=== PATIENT | male | born 1965 | race Caucasian/White ===

== ENCOUNTER 2017-06-06 17:27 | Emergency (ER) | payer OTHER ==
--- NOTE | 2017-06-06 17:40 | DR.GENAD ---
HPI - PCP Primary Care Physician: NONE - HPI Comment HPI Comment: MANIC DEPRESSIVE PYCHOSIS AND CATATONIC SCHIZOPHRENIA WHO IS REFUSE MEDS FOR FEW DAYS. NO DYSURIA. PATIENT HAVE REFUSE TO EAT OR DRINK FOR FEW DAYS. - Complaint/Symptoms Chief Complaint Doctors Comments: PATIENT WITH DEPRESSION. REFUSSING MEDICATIONS. Chief Complaint:: "HIS FEET ARE SWOLLEN AND PURPLE. HE HAS BEEN DEPRESSED SINCE 2008 BUT OVER THE PAST COUPLE OF DAYS HE HAS BEEN NOT EATING AND JUST STARES OFF. HE WENT TO [facility] IN 2008." Self Treatment fo Chief Complaint: NONE. PT REFUSES TO TAKE HIS MEDICATION - Nurses notes reviewed Nurses Notes Review: Yes - Source History Provided: Parent - Mode of Arrival Mode of Arrival: Wheelchair - Timing Onset of Chief Complaint: 06/06/17 Came on: Suddenly - Duration Duration: Constant Duration: Days - Severity Severity: Moderate PMH - PMH Past Medical History: Yes Past Medical History: Depression Past Medical History Comment: LUPUS, OCD Past Surgical History: Yes Past Surgical History Comment: KIDNEY SURGERY - Family History History of Family Medical Conditions: No - Social History Does patient currently use any type of tobacco product: No Have you used tobacco products in the last 12 months: No Type of Tobacco Use: None Does any household member use tobacco: No Alcohol Use: None Do you use any recreational Drugs:: No Lives With: Alone Lives Where: Home - infectious screening In the last 2 months have you had wt loss of >10#?: NO Have you had fever, night sweats or hemotysis?: No Have you traveled outside the country in the last 6 months?: No Isolation: Standard ROS - Review of Systems Constitutional: Weakness, Fatigue, Loss of Appetite. negative: Chills, Fever Eyes: Discharge. negative: Eye Pain ENTM: negative: Ear Pain, Nose Discharge, Nose Congestion, Throat Pain Respiratoy: Non-Productive Cough, Short of Breath. negative: Wheezing, Hemoptysis Cardiovascular: Edema. negative: Chest Pain Gastrointestinal/Abdominal: negative: Abdominal Pain, Diarrhea, Nausea, Vomiting Genitourinary: negative: Dysuria, Frequency, Hematuria Neurological: Headache, Paresthesia (FEET), Weakness, Dizziness Musculoskeletal: Joint Pain, Joint Swelling, Muscle Pain Integumentary: Change in Color (FEET SWOLLEN AND ERYTHEMATIOUS.) Hematologic/Lymphatic: Easy Bruising Endocrine: No Symptoms Reported Psychiatric: Depression, Other (PARANOIA) All Other Systems: Reviewed and Negative PE - Vital Signs Vitals: Temperature 98.1 F Pulse Rate [Left Brachial] 62 Pulse Rate 70 Respiratory Rate 18 Blood Pressure [Left Arm] 105/56 Blood Pressure 116/61 O2 Sat by Pulse Oximetry 99 - General Limitations: Other (CATATONIC STATE) General Appearance: Alert, Other (FIX GAZE) - Head Head Exam: Normal Inspection - Eyes Eye exam: negative: Scleral Icterus, Conjunctival Injection - ENT ENT Exam: Normal Oropharynx, Normal External Ear Exam, Mucous Membranes Moist, TM's Normal Bilaterally External Ear Exam: Normal External Inspection TM/Canal Exam: Bilateral Normal Nose Exam: Normal Nose Exam Mouth Exam: Normal Inspection Throat Exam: Normal Inspection - Neck Neck Exam: Trachea Midline - Chest Chest Inspection: Symmetric Chest Wall Rise - Respiratory Respiratory Exam: Normal Lung Sounds Bilat Respiratory Exam: Bilateral Clear to Auscultation - Cardiovascular Cardiovascular Exam: Regular Rate, Normal Rhythm, Normal Heart Sounds - Abdominal Exam Abdominal Exam: Normal Bowel Sounds, Soft. negative: Tenderness - Extremities Extremities Exam: Tenderness (ERYTHEMA FEET AND ANKLE), Edema - Back Back Exam: Normal Inspection - Neurologic Neurological Exam: Alert, Other (FIX GAZE.) - Psychiatric Psychiatric Exam: Flat Affect - Skin Skin Exam: Erythema MDM - Additional Information Additional Information Obtained From: Family - Differential Diagnosis Differential Diagnosis: CATATONIC SCHIZOPHENIA, MANIC DEPRESSIVE PYCHOSIS, SLE Course - Treatment Treatment: SEE ORDERS. - Consultation Consultation Comments: ACCEPTED FOR TRANSFER TO [facility] IN [place] BY DR. BALDERAS. - Education/Counseling Education/Counseling: Patient, Family, Education Educated On: Diagnosis ROR - Labs Reviewed Laboratory Results Reviewed?: Yes Result Diagrams: 06/06/17 18:54 06/06/17 18:54 Laboratory: WBC 4.7 X10^3/uL (3.6-10.0) 06/06/17 18:54 RBC 4.47 X10^6/uL (4.7-6.0) L 06/06/17 18:54 Hgb 13.5 g/dL (13.5-18.0) 18 18:54 Hct 39.4 % (42.0-54.0) L 06/06/17 18:54 MCV 88.1 fL (80.0-100.0) 06/06/17 18:54 MCH 30.1 pg (27.0-34.0) 06/06/17 18:54 MCHC 34.1 g/dL (33.0-35.0) 06/06/17 18:54 RDW 13.7 % (11.6-16.5) 06/06/17 18:54 Plt Count 196 X10^3/uL (150.0-450.0) 06/06/17 18:54 MPV 7.9 fL (7.4-11.0) 06/06/17 18:54 Neut % (Auto) 63.8 % (42.0-75.0) 06/06/17 18:54 Lymph % (Auto) 23.2 % (21.0-51.0) 06/06/17 18:54 Evans % (Auto) 11.7 % (0.0-13.0) 06/06/17 18:54 Eos % (Auto) 0.4 % (0.9-2.9) L 06/06/17 18:54 Baso % (Auto) 0.9 % (0.2-1.0) 06/06/17 18:54 Neut # (Auto) 3.0 x10^3/uL (2.2-4.8) 06/06/17 18:54 Lymph # (Auto) 1.1 X10^3/uL (1.3-2.9) L 06/06/17 18:54 Evans # (Auto) 0.5 x10^3/uL (0.3-0.8) 06/06/17 18:54 Eos # (Auto) 0.0 x10^3/uL (0.0-0.2) 06/06/17 18:54 Baso # (Auto) 0.0 X10^3/uL (0.0-0.1) 06/06/17 18:54 Absolute Nucleated RBC 0.0 /100WBC 06/06/17 18:54 Sodium 141 mmol/L (136-145) 06/06/17 18:54 Corrected Sodium TNP 06/06/17 18:54 Potassium 4.2 mmol/L (3.5-5.1) 06/06/17 18:54 Chloride 103 mmol/L (98-107) 06/06/17 18:54 Carbon Dioxide 29.5 mmol/L (21-32) 06/06/17 18:54 BUN 28 mg/dL (7-18) H 06/06/17 18:54 Creatinine 1.13 mg/dL (0.70-1.30) 06/06/17 18:54 Est GFR (MDRD) Af Amer > 60 (>60) 06/06/17 18:54 Est GFR (MDRD) Non-Af > 60 (>60) 06/06/17 18:54 Glucose 96 mg/dL (65-99) 06/06/17 18:54 Calcium 8.7 mg/dL (8.5-10.1) 06/06/17 18:54 Corrected Calcium TNP 06/06/17 18:54 Total Bilirubin 0.30 mg/dL (0.2-1.0) 06/06/17 18:54 AST 28 Units/L (15-37) 06/06/17 18:54 ALT 24 Units/L (12-78) 06/06/17 18:54 Alkaline Phosphatase 73 Units/L (46-116) 06/06/17 18:54 Total Protein 8.0 g/dL (6.4-8.2) 06/06/17 18:54 Albumin 3.8 g/dL (3.4-5.0) 06/06/17 18:54 Globulin 4.2 g/dL (2.5-4.5) 06/06/17 18:54 Albumin/Globulin Ratio 0.9 Ratio (1.1-2.1) L 06/06/17 18:54 Specimen Type Random urine 06/06/17 19:40 Urine Color Yellow (YELLOW) 06/06/17 19:40 Urine Appearance Slightly hazy (CLEAR) 06/06/17 19:40 Urine pH 5.0 (5.0 - 8.0) 06/06/17 19:40 Ur Specific [place] 1.025 (1.000-1.030) 06/06/17 19:40 Urine Protein 1+ (NEGATIVE) 06/06/17 19:40 Urine Glucose (UA) Negative (NEGATIVE) 06/06/17 19:40 Urine Ketones 1+ (NEGATIVE) 06/06/17 19:40 Urine Occult Blood 2+ (NEGATIVE) 06/06/17 19:40 Urine Nitrite Negative (NEGATIVE) 06/06/17 19:40 Urine Bilirubin Negative (NEGATIVE) 06/06/17 19:40 Urine Urobilinogen Normal (NORMAL) 06/06/17 19:40 Ur Leukocyte Esterase Negative (NEGATIVE) 06/06/17 19:40 Urine RBC 0-3 /HPF (NONE SEEN) 06/06/17 19:40 Urine WBC 0-3 /HPF (NONE SEEN) 06/06/17 19:40 Ur Squamous Epith Cells Few /HPF (NEGATIVE) 06/06/17 19:40 Urine Bacteria Trace /HPF (NEGATIVE) 06/06/17 19:40 Urine Mucus Moderate /HPF (NEGATIVE) 06/06/17 19:40 Ur Culture Indicated? No/not indicated 06/06/17 19:40 Salicylates < 2.8 mg/dL (2.8-20) L 06/06/17 18:54 Urine Opiates Screen Negative (NEG=<300) 06/06/17 19:44 Urine Methadone Screen Negative (NEG=<300) 06/06/17 19:44 Acetaminophen 0.0 ug/mL (10-30) L 06/06/17 18:54 Ur Barbiturates Screen Negative (NEG=<200) 06/06/17 19:44 Ur Phencyclidine Scrn Negative (NEG=<25) 06/06/17 19:44 Ur Amphetamines Screen Negative (NEG=<1000) 06/06/17 19:44 U Benzodiazepines Scrn Negative (NEG=<200) 06/06/17 19:44 Urine Cocaine Screen Negative (NEG=<300) 06/06/17 19:44 U Marijuana (THC) Screen Negative (NEG=<50) 06/06/17 19:44 Ethyl Alcohol mg/dL < 3 mg/dL (0-19.9) 06/06/17 18:54 - XRAY XRAY Interpreted by: Radiologist XRAY Findings: REPORT DISCUSS WITH PATIENT. - EKG Rhythm: NSR (EKG NOTED) - Diagnosis Discharge Problem: Catatonic schizophrenia, Manic depressive psychosis, SLE (systemic lupus erythematosus) - Discharge Plan Disposition: 65 XFER TO PSYCH HOSP/UNIT Condition: Stable - Follow ups/Referrals Follow ups/Referrals: NFD,None [Primary Care Provider] - 3 days - Instructions
[2017-06-06 17:48] VITALS: BMI 19.5
[2017-06-06 19:08] LABS: BASOPHILS % (AUTO) 0.9 % (0.2-1.0); EOSINOPHILS % (AUTO) 0.4 % (0.9-2.9); HEMATOCRIT 39.4 % (42.0-54.0); HEMOGLOBIN 13.5 g/dL (13.5-18.0); LYMPHOCYTES # (AUTO) 1.1 X10^3/uL (1.3-2.9); LYMPHOCYTES % (AUTO) 23.2 % (21.0-51.0); MEAN CORPUSCULAR HEMOGLOBIN 30.1 pg (27.0-34.0); MEAN CORPUSCULAR HGB CONC 34.1 g/dL (33.0-35.0); MEAN CORPUSCULAR VOLUME 88.1 fL (80.0-100.0); MEAN PLATELET VOLUME 7.9 fL (7.4-11.0); MONOCYTES # (AUTO) 0.5 x10^3/uL (0.3-0.8); MONOCYTES % (AUTO) 11.7 % (0.0-13.0); NEUTROPHILS % (AUTO) 63.8 % (42.0-75.0); PLATELET COUNT 196 X10^3/uL (150.0-450.0); RED BLOOD COUNT 4.47 X10^6/uL (4.7-6.0); RED CELL DISTRIBUTION WIDTH 13.7 % (11.6-16.5); WHITE BLOOD COUNT 4.7 X10^3/uL (3.6-10.0)
[2017-06-06 19:17] LABS: ALANINE AMINOTRANSFERASE 24 Units/L (12-78); ALBUMIN 3.8 g/dL (3.4-5.0); ALKALINE PHOSPHATASE 73 Units/L (46-116); ASPARTATE AMINO TRANSFERASE 28 Units/L (15-37); BLOOD UREA NITROGEN 28 mg/dL (7-18); CALCIUM 8.7 mg/dL (8.5-10.1); CARBON DIOXIDE 29.5 mmol/L (21-32); CHLORIDE 103 mmol/L (98-107); CREATININE 1.13 mg/dL (0.70-1.30); SODIUM 141 mmol/L (136-145); eGFR BLACK RACES > 60 (>60); eGFR NON BLACK RACES > 60 (>60)
[2017-06-06 19:47] LABS: BILIRUBIN,URINE NEGATIVE (NEGATIVE); BLOOD/HEMOGLOBIN,URINE 2+ (NEGATIVE); GLUCOSE, URINE NEGATIVE (NEGATIVE); KETONES,URINE 1+ (NEGATIVE); LEUKOCYTE ESTERASE ,URINE NEGATIVE (NEGATIVE); NITRITES,URINE NEGATIVE (NEGATIVE); PROTEIN,URINE 1+ (NEGATIVE); UROBILINOGEN,URINE NORMAL (NORMAL)
[2017-06-06 20:00] LABS: BLOOD ALCOHOL < 3 mg/dL (0-19.9)
[2017-06-06 20:07] LABS: SALICYLATE < 2.8 mg/dL (2.8-20)
[2017-06-06 20:08] LABS: APPEARANCE,URINE SLIGHTLY HAZY (CLEAR); COLOR,URINE YELLOW (YELLOW)
[2017-06-06 20:09] LABS: BACTERIA,URINE TRACE /HPF (NEGATIVE); MUCUS,URINE MODERATE /HPF (NEGATIVE); RBC,URINE 0-3 /HPF (NONE SEEN); SQUAMOUS EPITHELIAL CELL,UR FEW /HPF (NEGATIVE)
[2017-06-06] MEDS ORDERED: ATIVAN INJ 2 MG VIAL IVP ONE (20:59)
[2017-06-06] MEDS ORDERED: ATIVAN INJ 2 MG VIAL ONE (21:05)
[2017-06-06] MEDS ORDERED: ATIVAN INJ 2 MG VIAL IM ONE (21:09)
--- NOTE | 2017-06-06 21:18 | RAD ---
HISTORY: Dyspnea, swelling Study: Single-view chest Comparison: None Findings: The heart is borderline enlarged when considering the AP technique. The lungs are clear without lobar mass or consolidation to suggest florid pulmonary edema or pneumonia. There is no effusion or pneumo thorax. Within the right humeral metaphysis, there is a geographic intrinsic mixed lytic and scleroti c osseous lesion measuring 3.4 cm with a narrow zone of transition and without overlying cortical he truction or periostitis for which primary differential considerations include a bone infarct, enchond faizan, other low grade chondroid lesion, and fibrous dysplasia. IMPRESSION: Borderline cardiomegaly without acute cardiopulmonary disease otherwise noted. Incidental intrinsic o sseous lesion in the right humeral metaphysis for which 3 to six-month dedicated radiographic follow- up of the right humerus is recommended to document stability. Reported By:
--- NOTE | 2017-06-06 21:21 | RAD ---
HISTORY: Swelling and discoloration of the bilateral feet Study: Three views right foot Comparison: None Findings: There is no acute fracture or dislocation. No significant soft tissue swelling is appreciated. There is no cortical destruction or periostitis. IMPRESSION: Negative exam. Reported By:
--- NOTE | 2017-06-06 21:22 | RAD ---
HISTORY: Foot swelling and discoloration Study: Three views left foot Comparison: None Findings: There is no acute fracture or dislocation. No significant soft tissue swelling is appreciated. There is no cortical destruction or periostitis. IMPRESSION: Negative exam. Reported By:
[2017-06-06 21:45] VITALS: BP 105/56
== END 2017-06-07 01:24 ==
LOC: ER 17:35
DX: F20.2 Catatonic schizophrenia (principal); M32.9 Systemic lupus erythematosus, unspecified; F31.89 Other bipolar disorder
CPT/HCPCS: 36415; 71045; 73630; 80053; 80307; 81001; 85025; 96372; 99285; G0434; G6038; G6039; G6040; J2060